=== PATIENT | female | born 1955 | race Caucasian/White ===

== ENCOUNTER 2016-07-11 13:39 | Inpatient (IN) ==
[2016-07-11] MEDS ORDERED: Ondansetron 4 MG/2 ML VIAL IVP PRN (18:15)
[2016-07-11] MEDS ORDERED: *HR* Morphine 2 MG/ML SYRINGE IVP PRN (18:15)
[2016-07-11] MEDS ORDERED: *HR* HYDROmorphone 2 MG/ML SYRINGE IVP PRN (19:21)
--- NOTE | 2016-07-11 19:25 | Orthopedic History & Physical ---
Date of Encounter: 07/11/16 Time of Encounter: 19:22 History of Present Illness HPI: Ms. Slaughter is a 60 year old female Status post fall over her oxygen landing on her right shoulder. Patient is right-hand dominant. Patient denies any head trauma. Patient complains of pain in the right arm. She was seen at [facility] transferred over for treatment of a comminuted displaced right proximal humerus fracture. Past medical history COPD, hypertension, thyroid disease Surgical history: Multiple eye surgeries, 3 back surgeries, knee surgery, cholecystectomy. Allergies Levaquin Patient lives at home alone on home oxygen. Physical exam Alert and oriented 3 normocephalic/atraumatic. Right upper extremity positive swelling positive ecchymosis decreased range of motion secondary to pain neurovascularly intact. X-rays right humerus show displaced comminuted oblique proximal third humerus fracture Although patient is high risk this fracture requires surgical management. The plan is open reduction internal fixation of the right humerus. We discussed risks benefits as well as recovery. Past Med Surg Social Fam HX - Past Medical History Medical history: arthritis, COPD, hypertension - Past Surgical History Surgical History: coronary bypass (CABG) - Social History Smoking Status: Former smoker Smokeless Tobacco Status: No Alcohol use: none Drug use: none Medications and Allergies Albuterol Sulfate [Ventolin Hfa] 2 puff IH Q4-6H PRN 07/11/16 [History] Amlodipine [Norvasc] 5 mg PO DAILY 07/11/16 [History] Fluticasone/Salmeterol [Advair 250-50 Diskus] 1 puff IH BID 07/11/16 [History] Levothyroxine Sodium [Synthroid] 137 mcg PO DAILY 07/11/16 [History] Morphine Sulfate [Morphine Sulfate ER] 60 mg PO Q12H 07/11/16 [History] Omeprazole [PriLOSEC] 20 mg PO BID 07/11/16 [History] Oxycodone HCl/Acetaminophen [Percocet 7.5-325 mg Tablet] 1 tab PO BID PRN [History] Simvastatin [Zocor] 20 mg PO HS 07/11/16 [History] Umeclidinium [place] [Incruse Ellipta] 1 puff IH DAILY 07/11/16 [History] Valsartan [Diovan] 80 mg PO DAILY 07/11/16 [History] Allergies levofloxacin [From Levaquin] Allergy (Verified 07/11/16 17:58) Itching All Systems Reviewed: A 10-system review of systems was performed and is negative for pertinent findings except as documented above in the HPI. Physical Exam - Constitutional Vitals: Temp Pulse Resp BP Pulse Ox 99.6 F 95 16 124/78 97 07/11/16 17:49 07/11/16 17:49 07/11/16 17:49 07/11/16 17:49 07/11/16 17:49 Results - Labs Labs: All other labs normal.
[2016-07-11] MEDS: Budesonide/Formoterol 160/4.5 MDI IH SCH (21:06)
[2016-07-11] MEDS: *HR* Morphine Sulfate SR (12 HR) 60 MG TABLET.ER PO SCH (21:06)
[2016-07-12] MEDS: *HR* OxyCODONE Immed Rel 5 MG TABLET PO PRN ×5 (01:05→23:13)
[2016-07-12] MEDS: Ringers Solution, Lactated 1,000 ML IVC SCH ×2 (01:10→22:22)
[2016-07-12 04:51] LABS: INR 1.3; Prothrombin Time 13.8 Seconds (9.4-12.1)
[2016-07-12 04:55] LABS: Basophils % 0.3 %; Eosinophils % 0.2 %; Hematocrit 30.9 % (35.3-44.9); Hemoglobin 9.7 g/dL (11.5-15.4); Immature Granulocytes % 0.6 % (0-4); Lymphocytes % 11.5 %; Mean Corpuscular HGB Conc 31.4 g/dL (31.6-35.5); Mean Corpuscular Hemoglobin 25.3 pg (28.0-33.3); Mean Corpuscular Volume 80.7 fL (83.0-100.0); Mean Platelet Volume 10.7 fL (9.4-12.4); Monocytes # 0.9 K/mcL (0.0-1.3); Monocytes % 10.3 %; Neutrophils # 6.9 K/mcL (1.6-8.9); Platelet Count 236 K/mcL (140-400); Red Blood Count 3.83 M/mcL (3.82-4.97); Red Cell Distribution Width 14.8 % (11.5-14.5); Segmented Neutrophils % 77.1 %
[2016-07-12 05:09] LABS: BUN/Creatinine Ratio 13 (6-26); Blood Urea Nitrogen 12 mg/dL (7-20); Calcium 8.8 mg/dL (8.6-10.8); Carbon Dioxide 25 mEq/L (19-29); Chloride 104 mEq/L (98-109); Glucose 118 mg/dL (70-99); Osmolality,Calculated 281 (280-300); Potassium 4.2 mEq/L (3.5-4.5); Sodium 135 mEq/L (136-145); eGFR For African Americans > 60 (> 60); eGFR For Non-African Americans > 60 (> 60)
--- NOTE | 2016-07-12 06:51 | Orthopedics Progress Note ---
Date of Encounter: 07/12/16 Time of Encounter: 06:51 Subjective Interval history: Patient seen this morning resting comfortably Right upper extremity neurovascular intact in splint Hematocrit 30 will transfuse 1 unit surgery planned for tomorrow open reduction internal fixation. Objective Vital signs: Vital Signs Temp Pulse Resp BP Pulse Ox 07/12/16 05:22 97.9 F 86 16 100/68 95 07/12/16 01:17 98.7 F 101 17 130/77 95 07/11/16 22:10 98.4 F 98 16 130/84 95 07/11/16 21:06 16 99 07/11/16 17:49 99.6 F 95 16 124/78 97 Intake and Output 07/11/16 07/11/16 07/12/16 15:59 23:59 07:59 Intake Total 0 / 0 230 / 230 Balance 0 / 0 230 / 230 Intake: Oral 0 / 0 230 / 230 Other: Weight 105 kg - Labs CBC & BMP: 07/12/16 04:21 07/12/16 04:21 Labs: Abnormal lab results Hgb 9.7 g/dL (11.5-15.4) L 07/12/16 04:21 Hct 30.9 % (35.3-44.9) L 07/12/16 04:21 MCV 80.7 fL (83.0-100.0) L 07/12/16 04:21 MCH 25.3 pg (28.0-33.3) L 07/12/16 04:21 MCHC 31.4 g/dL (31.6-35.5) L 07/12/16 04:21 RDW 14.8 % (11.5-14.5) H 07/12/16 04:21 PT 13.8 Seconds (9.4-12.1) H 07/12/16 04:21 Sodium 135 mEq/L (136-145) L 07/12/16 04:21 Glucose 118 mg/dL (70-99) H 07/12/16 04:21 Consult Discharge Plan - Plan Referrals: NO,PCP [Primary Care Provider] -
[2016-07-12] MEDS ORDERED: Furosemide 20 MG/2 ML VIAL IVP ONE ×2 (06:56→15:37)
[2016-07-12] MEDS ORDERED: 0.9 % Sodium Chloride 250 ML IVC PRN (06:56)
[2016-07-12] MEDS: amLODIPine 5 MG TABLET PO SCH ×2 (07:45→13:27)
[2016-07-12] MEDS: Valsartan 80 MG TABLET PO SCH ×2 (07:45→13:26)
[2016-07-12] MEDS: Budesonide/Formoterol 160/4.5 MDI IH SCH ×2 (08:48→22:34)
[2016-07-12 09:05] LABS: Hematocrit 29.5 % (35.3-44.9); Hemoglobin 9.2 g/dL (11.5-15.4)
[2016-07-12] MEDS: *HR* Morphine Sulfate SR (12 HR) 60 MG TABLET.ER PO SCH ×2 (09:12→20:13)
--- NOTE | 2016-07-12 11:24 | Discharge Summary ---
Date of Encounter: 07/14/16 Time of Encounter: 06:34 - Discharge Diagnosis (1) Fracture of proximal end of right humerus Priority: Primary Status: Acute Qualifiers: Encounter type: initial encounter Fracture type: closed Fracture morphology: other fracture Fracture alignment: displaced Qualified Code(s): S42.291A - Other displaced fracture of upper end of right humerus, initial encounter for closed fracture (2) COPD (chronic obstructive pulmonary disease) Priority: Secondary Status: Chronic Qualifiers: COPD type: unspecified COPD Qualified Code(s): J44.9 - Chronic obstructive pulmonary disease, unspecified (3) Hypertension Priority: Secondary Status: Chronic Qualifiers: Hypertension type: unspecified secondary hypertension Qualified Code(s): I15.9 - Secondary hypertension, unspecified; I15 - Secondary hypertension (4) Thyroid disease Priority: Secondary Status: Chronic (5) Obesity (BMI 35.0-39.9 without comorbidity) Priority: Secondary Status: Acute (6) Acute blood loss anemia Priority: Primary Status: Acute (7) PVC (premature ventricular contraction) Priority: Secondary Status: Chronic - Discharge Medications Prescriptions: Morphine Sulfate SR (12 HR) [MS Contin] 60 mg PO Q12H #10 tablet.er Oxycodone HCl/Acetaminophen [Percocet 7.5-325 mg Tablet] 1 tab PO BID PRN #14 tablet PRN Reason: Pain Home Medications: Albuterol Sulfate [Ventolin Hfa] 2 puff IH Q4-6H PRN 07/11/16 [History] Amlodipine [Norvasc] 5 mg PO DAILY 07/11/16 [History] Fluticasone/Salmeterol [Advair 250-50 Diskus] 1 puff IH BID 07/11/16 [History] Levothyroxine Sodium [Synthroid] 137 mcg PO DAILY 07/11/16 [History] Morphine Sulfate [Morphine Sulfate ER] 60 mg PO Q12H 07/11/16 [History] Omeprazole [PriLOSEC] 20 mg PO BID 07/11/16 [History] Simvastatin [Zocor] 20 mg PO HS 07/11/16 [History] Umeclidinium [place] [Incruse Ellipta] 1 puff IH DAILY 07/11/16 [History] Valsartan [Diovan] 80 mg PO DAILY 07/11/16 [History] Morphine Sulfate SR (12 HR) [MS Contin] 60 mg PO Q12H #10 tablet.er 07/12/16 [Rx ] Oxycodone HCl/Acetaminophen [Percocet 7.5-325 mg Tablet] 1 tab PO BID PRN #14 tablet 07/12/16 [Rx] Allergies/Adverse Reactions: Allergies levofloxacin [From Levaquin] Allergy (Verified 07/11/16 17:58) Itching Labs on day of discharge: Labs from last 24 hours 07/12/16 07/12/16 07/12/16 08:37 08:37 04:21 WBC RBC Hgb 9.2 L Hct 29.5 L MCV MCH MCHC RDW Plt Count MPV Immature Gran % Seg Neutrophils % Lymphocytes % Monocytes % Eosinophils % Basophils % Neutrophils # Lymphocytes # Monocytes # Eosinophils # Basophils # PT INR Sodium 135 L Potassium 4.2 Chloride 104 Carbon Dioxide 25 BUN 12 Creatinine 0.89 Est GFR ( Amer) > 60 Est GFR (Non-Af Amer) > 60 BUN/Creatinine Ratio 13 Glucose 118 H Calculated Osmolality 281 Calcium 8.8 Blood Type A POSITIVE Antibody Screen NEGATIVE Crossmatch See Detail 07/12/16 07/12/16 04:21 04:21 WBC 8.9 RBC 3.83 Hgb 9.7 L Hct 30.9 L MCV 80.7 L MCH 25.3 L MCHC 31.4 L RDW 14.8 H Plt Count 236 MPV 10.7 Immature Gran % 0.6 Seg Neutrophils % 77.1 Lymphocytes % 11.5 Monocytes % 10.3 Eosinophils % 0.2 Basophils % 0.3 Neutrophils # 6.9 Lymphocytes # 1.0 Monocytes # 0.9 Eosinophils # 0.0 Basophils # 0.0 PT 13.8 H INR 1.3 Sodium Potassium Chloride Carbon Dioxide BUN Creatinine Est GFR ( Amer) Est GFR (Non-Af Amer) BUN/Creatinine Ratio Glucose Calculated Osmolality Calcium Blood Type Antibody Screen Crossmatch - Impressions ITS Impressions Chest X-Ray 07/12/16 05:00 IMPRESSION: 1. Acute comminuted proximal right humeral fracture. D/ / Don Mccoy MD / Don Mccoy MD Interpreting Provider: Don Mccoy MD Date of admission: 07/12/16 08:33 Primary care physician: PCP NO Consults: 07/11/16 18:18 Consult to Physician [CONS] Routine Consulting Provider: Eliseo Salazar Reason for Consult: medical management/ pre op Call Completed: Mala 07/12/16 11:17 Consult to It Infrastructure Specialist [CONS] Routine Reason for SW Consult: d/c planning - Patient Status Disposition: Home, Self-Care Condition: Good Functional capacity at discharge: independent ambulation Overall status at discharge: patient is progressing back to baseline - Discharge Instructions Follow Up With: NO,PCP [Non-Partnered Physician] - - Hospital Course Hospital course: Ms. Slaughter is a 60 year old female The patient had an uneventful postoperative course. They received antibiotics and physical therapy and were discharged in stable condition. There will follow -up in the office in 2 weeks. - Time Spent with Patient Total time spent providing and/or coordinating discharge services:
--- NOTE | 2016-07-12 13:39 | Internal Medicine Consult Note ---
Addendum entered and electronically signed by Chris Campos DO 07/12/16 19:06 : After evaluation of her ECG, she appeared to have some ECG changes that were not present before. I feel that it would be prudent to have an evaluation by cardiology in light of these findings prior to her procedure. Cardiology has been consulted and per their recommendation, we have obtained a magnesium level. Original Note: <Chris Campos - Last Filed: 07/12/16 13:35> Date of Encounter: 07/12/16 Time of Encounter: 13:00 Internal Medicine - CN: HPI - Data of Consult Patient: new to practice Consult date: 07/12/16 Requesting Physician: Joaquín Sam MD - Consult Narrative Reason for consult: Medical management and pre-op assessment History of present illness: Ms. Slaughter is a 60 year old female with prior history of COPD (on 3 L home oxygen), hypothyroidism, hypertension, artificial left eye, and chronic back pain who presented to [facility] after suffering a mechanical fall at home. In this fall, she fell in her right shoulder and suffered a comminuted fracture in the proximal humerus. She denies any precipitating illness or symptomatic complaints prior to suffering her fall. Immediately upon falling she had 10/10 pain in severity in her left shoulder reports having bruised her chin, left knee , and left hand. She denies having been sick recently, denies chest pain, denies any greater shortness of breath than usual. She denies lightheadedness, denies dizziness, denies changes in vision. She denies prior history of heart failure or coronary artery disease. - Constitutional Constitutional: falls, no chills, no fatigue, no fever(s), no weakness - EENT Eyes: no blurry vision, no change in vision, no loss of vision - Cardiovascular Cardiovascular ROS IM: dyspnea (Normal for her), dyspnea on exertion (Normal for her), no chest pain, no diaphoresis, no edema, no lightheadedness, no orthopnea, no palpitations - Respiratory Respiratory: as per HPI, dyspnea (Normal for her), no cough, no hemoptysis, no wheezing, no change in phlegm color, no pain with cough - Gastrointestinal Gastrointestinal: no abdominal pain, no constipation, no diarrhea, no hematochezia, no nausea, no vomiting - Musculoskeletal Musculoskeletal ROS IM: back pain, no muscle weakness, no numbness, no tingling - Integumentary Integumentary IM: as per HPI (Ecchymoses) - Neurological Neurological ROS: no focal weakness, no headache(s), no numbness, no tingling, no weakness Past Med Surg Social Fam HX - Past Medical History Medical history: arthritis, COPD, hypertension - Past Surgical History Surgical History: coronary bypass (CABG) - Social History Smoking Status: Former smoker Smokeless Tobacco Status: No Alcohol use: none Drug use: none Internal Medicine - CN: Meds Albuterol Sulfate [Ventolin Hfa] 2 puff IH Q4-6H PRN 07/11/16 [History] Amlodipine [Norvasc] 5 mg PO DAILY 07/11/16 [History] Fluticasone/Salmeterol [Advair 250-50 Diskus] 1 puff IH BID 07/11/16 [History] Levothyroxine Sodium [Synthroid] 137 mcg PO DAILY 07/11/16 [History] Morphine Sulfate [Morphine Sulfate ER] 60 mg PO Q12H 07/11/16 [History] Omeprazole [PriLOSEC] 20 mg PO BID 07/11/16 [History] Simvastatin [Zocor] 20 mg PO HS 07/11/16 [History] Umeclidinium [place] [Incruse Ellipta] 1 puff IH DAILY 07/11/16 [History] Valsartan [Diovan] 80 mg PO DAILY 07/11/16 [History] Morphine Sulfate SR (12 HR) [MS Contin] 60 mg PO Q12H #10 tablet.er 07/12/16 [Rx ] Oxycodone HCl/Acetaminophen [Percocet 7.5-325 mg Tablet] 1 tab PO BID PRN #14 tablet 07/12/16 [Rx] Allergies levofloxacin [From Levaquin] Allergy (Verified 07/11/16 17:58) Itching Internal Medicine - CN: Exam - Constitutional Vitals: Temp Pulse Resp BP Pulse Ox 98.8 F 103 16 124/70 96 07/12/16 13:01 07/12/16 13:01 07/12/16 13:01 07/12/16 13:01 07/12/16 13:01 General appearance IM: Present: cooperative, A&O X 3, pleasant, no acute distress, obese, answers questions appropriately - Head Head exam: Present: atraumatic, normocephalic Additional comments: Ecchymosis on left side of mental/mandibular area - Expanded Head Exam Head exam expanded IM: Absent: abrasion, Berg's sign, laceration, raccoon eyes - Eye Eye exam: Present: conjuntiva pink. Absent: conjunctival injection, sclera anicteric Additional comments: Left eye prosthesis in place, right pupil round and reactive to light - ENT ENT exam: Present: mucous membranes moist, normal oropharynx - Neck Neck exam general surgery: Present: supple, trachea midline - Respiratory Respiratory exam: Present: CTAB. Absent: accessory muscle use, chest wall tenderness, rales, respiratory distress, rhonchi, stridor, wheezes, tachypnea - Cardiovascular Cardiovascular exam IM: Present: RRR (Occasional dropped beats), systolic murmur (Grade 2/6). Absent: bradycardia, diastolic murmur, gallop, rubs - Expanded Cardiovascular Exam Intensity: 2/6 - GI/Abdominal GI/Abdominal exam IM: Present: normal bowel sounds - Extremities Exam Extremities exam IM: Present: normal inspection, warm, radial pulses palpable and symetrical. Absent: calf tenderness, cyanotic, pedal edema, tenderness - Neurological Exam Neurological exam: Present: alert, oriented X3, no focal deficits. Absent: motor sensory deficit, facial droop, speech deficit - Skin Skin exam IM: Present: dry, intact, warm. Absent: cyanosis Internal Medicine - CN: Reslt - Labs CBC & Chem 7: 07/12/16 08:37 07/12/16 04:21 Labs: Short CBC 07/12/16 07/12/16 Range/Units 04:21 08:37 WBC 8.9 (4.3-11.1) K/mcL Hgb 9.7 L 9.2 L (11.5-15.4) g/dL Hct 30.9 L 29.5 L (35.3-44.9) % Plt Count 236 (140-400) K/mcL Neutrophils # 6.9 (1.6-8.9) K/mcL BMP 07/12/16 04:21 Sodium 135 L Potassium 4.2 Chloride 104 Carbon Dioxide 25 BUN 12 Creatinine 0.89 Glucose 118 H Calcium 8.8 - ABG Interpretation ABG results: PT/INR, D-dimer PT 13.8 Seconds (9.4-12.1) H 07/12/16 04:21 - Impressions Impressions Chest X-Ray 07/12/16 05:00 IMPRESSION: 1. Acute comminuted proximal right humeral fracture. D/ / Don Mccoy MD / Don Mccoy MD Interpreting Provider: Don Mccoy MD - Assessment and Plan (1) Pre-op evaluation Current Visit: Yes Status: Acute Assessment and plan: Medicine consulted to assist in optimization of patient medical management and for preoperative evaluation. Patient appears stable. COPD is not in exacerbation, patient is on her home oxygen, no wheezes auscultated on exam, patient has no complaints of increased shortness of breath, dyspnea, fever/ chills. Patient had echocardiogram performed 05/31/16 that was completely normal. EKG shows not concerning T-wave inversions, patient occasionally has dropped beats. Her thyroid medication appears to working reasonably, and her blood pressure is currently controlled with home medications. We will obtain additional EKG for concern of patient skipped beats and for comparison Continue current medications for COPD Recommend incentive spirometry post procedure Recommend nebulized breathing treatments postprocedure Continue home oxygen Patient undergoing intermediate risk procedure and will be at increased risk due to her underlying lung disease. This is stable at this time. Patient has no history of heart failure or valvular abnormalities, with recent corroboration with echocardiogram. (2) Fracture of proximal end of right humerus Current Visit: Yes Status: Acute Assessment and plan: Patient brought proximal right humerus in a mechanical fall at home. Orthopedic surgery primary Plan for fixation of right humerus tomorrow Qualifiers: Encounter type: initial encounter Fracture type: closed Fracture morphology: other fracture Fracture alignment: displaced Qualified Code(s): S42.291A - Other displaced fracture of upper end of right humerus, initial encounter for closed fracture (3) COPD (chronic obstructive pulmonary disease) Current Visit: Yes Status: Chronic Assessment and plan: Patient reports having COPD, likely from smoking (she reports quitting 2 years ago). She states that she is on 3 L home oxygen all the time. No wheezes auscultated on exam, patient does not have complaints of increased shortness of breath, and there are no reports of recent illness. Continue current medications Plan as above Qualifiers: COPD type: unspecified COPD Qualified Code(s): J44.9 - Chronic obstructive pulmonary disease, unspecified (4) Hypertension Current Visit: Yes Status: Chronic Assessment and plan: Continue home antihypertensive medications Qualifiers: Hypertension type: unspecified secondary hypertension Qualified Code(s): I15.9 - Secondary hypertension, unspecified; I15 - Secondary hypertension (5) Obesity (BMI 35.0-39.9 without comorbidity) Current Visit: Yes Status: Acute (6) Thyroid disease Current Visit: Yes Status: Chronic Assessment and plan: Continue home levothyroxine (7) DVT prophylaxis Current Visit: Yes Status: Acute Assessment and plan: Recommend starting subcutaneous heparin for DVT prophylaxis Consult Discharge Plan - Plan Referrals: NO,PCP [Primary Care Provider] - Prescriptions: Morphine Sulfate SR (12 HR) [MS Contin] 60 mg PO Q12H #10 tablet.er Oxycodone HCl/Acetaminophen [Percocet 7.5-325 mg Tablet] 1 tab PO BID PRN #14 tablet PRN Reason: Pain <Eliseo Salazar - Last Filed: 07/12/16 19:25> Date of Encounter: 07/12/16 - Attending Attestation I have seen and examined this patient independently. I have discussed the case with theresident, Dr. Chris Campos. I agree with the data gathering in the HPI , physical examination findings, assessment and plan as documented by Dr. Campos. Presurgical evaluation requested, no chest pain and presrved EF, finding of PVCs in EKG, would recommend telemetry monitoring and an evaluation by cardiology. Magnesium levels requested. Thank you for the consult. Internal Medicine - CN: HPI - Data of Consult Requesting Physician: Joaquín Sam MD - Consult Narrative History of present illness: Ms. Slaughter is a 60 year old female Internal Medicine - CN: Exam - Constitutional Vitals: Temp Pulse Resp BP Pulse Ox 99.1 F 93 17 124/70 99 07/12/16 15:31 07/12/16 15:31 07/12/16 15:31 07/12/16 13:01 07/12/16 15:31 Internal Medicine - CN: Reslt - Labs CBC & Chem 7: 07/12/16 08:37 12/29/16 04:21 Labs: Short CBC 07/12/16 07/12/16 Range/Units 04:21 08:37 WBC 8.9 (4.3-11.1) K/mcL Hgb 9.7 L 9.2 L (11.5-15.4) g/dL Hct 30.9 L 29.5 L (35.3-44.9) % Plt Count 236 (140-400) K/mcL Neutrophils # 6.9 (1.6-8.9) K/mcL BMP 07/12/16 04:21 Sodium 135 L Potassium 4.2 Chloride 104 Carbon Dioxide 25 BUN 12 Creatinine 0.89 Glucose 118 H Calcium 8.8 - ABG Interpretation ABG results: PT/INR, D-dimer PT 13.8 Seconds (9.4-12.1) H 07/12/16 04:21 - Impressions Impressions Chest X-Ray 07/12/16 05:00
--- NOTE | 2016-07-12 14:48 | Electrocardiograph Report ---
[facility] Test Date: 2016-07-12 Pat Name: Naomy Slaughter Department: 114 Room: [facility] Gender: F [employer]: [facility] : 1955 Requested By: Joaquín Sam Order Number: [id number] Reading MD: Mendez Little Measurements Intervals [place] Rate: 78 P: 59 ND: 151 QRS: 76 QRSD: 94 T: 34 QT: 369 QTc: 402 Interpretive Statements SINUS RHYTHM MODERATE T-WAVE ABNORMALITY, CONSIDER ANTERIOR ISCHEMIA Electronically Signed On 07-12-16 14:47:38 EST by Mendez Little
[2016-07-12 19:57] LABS: Hematocrit 32.9 % (35.3-44.9); Hemoglobin 10.6 g/dL (11.5-15.4)
--- NOTE | 2016-07-12 22:40 | Anesthesia Evaluation PreOp ---
Date of Encounter: 07/12/16 Time of Encounter: 22:38 - Past History Planned Operation: R humerus ORIF Cardiac History: HTN Pulmonary History: Former smoker, COPD (oxygen dependent (3L oxygen all the time )) ELIGIBILITY COUNSELOR History: Denies Any Significant HX Other Medical History: Thyroid, Other (L eye is implant) Anesthesia History: No Prior Anesthetic Complications, Past Anesthesia ( cholecystectomy, knee surgery, back surgery (multiple), multiple eye surgeries) Alcohol Use: none Drug use: none Medications and Allergies Albuterol Sulfate [Ventolin Hfa] 2 puff IH Q4-6H PRN 07/11/16 [History] Amlodipine [Norvasc] 5 mg PO DAILY 07/11/16 [History] Fluticasone/Salmeterol [Advair 250-50 Diskus] 1 puff IH BID 07/11/16 [History] Levothyroxine Sodium [Synthroid] 137 mcg PO DAILY 07/11/16 [History] Morphine Sulfate [Morphine Sulfate ER] 60 mg PO Q12H 07/11/16 [History] Omeprazole [PriLOSEC] 20 mg PO BID 07/11/16 [History] Simvastatin [Zocor] 20 mg PO HS 07/11/16 [History] Umeclidinium [place] [Incruse Ellipta] 1 puff IH DAILY 07/11/16 [History] Valsartan [Diovan] 80 mg PO DAILY 07/11/16 [History] Morphine Sulfate SR (12 HR) [MS Contin] 60 mg PO Q12H #10 tablet.er 07/12/16 [Rx ] Oxycodone HCl/Acetaminophen [Percocet 7.5-325 mg Tablet] 1 tab PO BID PRN #14 tablet 07/12/16 [Rx] Allergies levofloxacin [From Levaquin] Allergy (Verified 07/11/16 17:58) Itching - Meds/Allergy Pre-op Review Medications Reviewed: Yes Allergies Reviewed: Yes Beta Blockers on Current Med List: No Anesthesia Results - Labs 07/12/16 19:45 07/12/16 04:21 - Imaging EKG: report reviewed, image reviewed (SR; mod T-wave abnormality (consider anterior ischemia)) Anesthesia Exam Last Vital Signs Temp 98.5 F 07/12/16 20:00 Pulse 108 07/12/16 20:00 Resp 18 07/12/16 20:00 BP 105/70 07/12/16 20:00 Pulse Ox 98 07/12/16 20:00 Weight: 105 kg - HEENT Pupil (Motor): Pupils equal, EOMI Mallampati: III Teeth: Edentulous Denture Type: Upper: Complete, Lower: Complete Oral Opening: Greater than 3 - ELIGIBILITY COUNSELOR LOC: Oriented - Cardiac Rhythm: Regular Murmur: Systolic (low grade VENKAT) - Pulmonary Breath Sounds: bilateral Clear Respiratory Effort: Symmetrical Anesthesia Assess/Plan ASA Score: 3 Modified [place] Scale for Level of Consciousness: Cooperative, oriented, and tranquil Anesthetic Plan: General, Precautions ( Awaiting cardiology clearance per Internal Medicine note Although patient is asymptomatic -- concern is for new EKG changes) Monitoring Plan: Standard Monitors Recovery Plan: PACU
[2016-07-13] MEDS: *HR* OxyCODONE Immed Rel 5 MG TABLET PO PRN ×3 (03:25→15:10)
--- NOTE | 2016-07-13 06:36 | Orthopedics Progress Note ---
Date of Encounter: 07/13/16 Time of Encounter: 06:36 - Assessment and Plan (1) Fracture of proximal end of right humerus Current Visit: Yes Status: Acute Qualifiers: Encounter type: initial encounter Fracture type: closed Fracture morphology: other fracture Fracture alignment: displaced Qualified Code(s): S42.291A - Other displaced fracture of upper end of right humerus, initial encounter for closed fracture (2) COPD (chronic obstructive pulmonary disease) Current Visit: Yes Status: Chronic Qualifiers: COPD type: unspecified COPD Qualified Code(s): J44.9 - Chronic obstructive pulmonary disease, unspecified (3) Hypertension Current Visit: Yes Status: Chronic Qualifiers: Hypertension type: unspecified secondary hypertension Qualified Code(s): I15.9 - Secondary hypertension, unspecified; I15 - Secondary hypertension (4) Thyroid disease Current Visit: Yes Status: Chronic (5) Obesity (BMI 35.0-39.9 without comorbidity) Current Visit: Yes Status: Acute Subjective Interval history: Patient seen this morning resting comfortably Right upper extremity neurovascular intact in splint Planned surgery today Objective Vital signs: Vital Signs Temp Pulse Resp BP Pulse Ox 07/13/16 04:00 98.4 F 84 17 116/69 94 L 07/13/16 00:00 98.1 F 96 18 110/68 98 07/12/16 22:34 17 98 07/12/16 20:00 98.5 F 108 18 105/70 98 07/12/16 15:31 99.1 F 93 17 99 07/12/16 13:01 98.8 F 103 16 124/70 96 07/12/16 12:46 98.5 F 92 17 119/73 98 07/12/16 12:30 98.0 F 86 14 123/72 98 07/12/16 10:01 95 139/88 07/12/16 09:08 92 104/68 07/12/16 08:49 18 100 07/12/16 07:11 98.2 F 87 16 82/54 95 Intake and Output 07/12/16 07/12/16 07/13/16 15:59 23:59 07:59 Intake Total 1590 / 1590 560 / 560 0 / 0 Output Total 300 / 300 350 / 350 Balance 1590 / 1590 260 / 260 -350 / -350 Intake: IV Fluids 1050 / 1050 0.9 % Sodium Chloride 250 50 / 50 ML @ 25 mls/hr IVC .Q10H PRN Rx#:[id number] Lactated Ringers 1,000 ML 1000 / 1000 @ 75 mls/hr IVC .[id number] MYRNA Rx#:[id number] Oral 240 / 240 560 / 560 0 / 0 Blood Product 300 / 300 Rbcs Leuko Poor As-1 300 / 300 Unit [id number] Output: Urine 300 / 300 350 / 350 Other: Meal Breakfast Dinner Percent of Meal Consumed 100% 100% # Voids 1 - Labs CBC & BMP: 07/12/16 19:45 07/12/16 04:21 Labs: Abnormal lab results Hgb 10.6 g/dL (11.5-15.4) L 07/12/16 19:45 Hct 32.9 % (35.3-44.9) L 07/12/16 19:45 MCV 80.7 fL (83.0-100.0) L 07/12/16 04:21 MCH 25.3 pg (28.0-33.3) L 07/12/16 04:21 MCHC 31.4 g/dL (31.6-35.5) L 07/12/16 04:21 RDW 14.8 % (11.5-14.5) H 07/12/16 04:21 PT 13.8 Seconds (9.4-12.1) H 07/12/16 04:21 Sodium 135 mEq/L (136-145) L 07/12/16 04:21 Glucose 118 mg/dL (70-99) H 07/12/16 04:21 - VTE Documentation of Mechanical Device: Intermittent pneumatic compression device Consult Discharge Plan - Plan Referrals: NO,PCP [Primary Care Provider] - Prescriptions: Morphine Sulfate SR (12 HR) [MS Contin] 60 mg PO Q12H #10 tablet.er Oxycodone HCl/Acetaminophen [Percocet 7.5-325 mg Tablet] 1 tab PO BID PRN #14 tablet PRN Reason: Pain
[2016-07-13] MEDS: Budesonide/Formoterol 160/4.5 MDI IH SCH ×2 (07:52→23:57)
[2016-07-13] MEDS: Valsartan 80 MG TABLET PO SCH (08:34)
[2016-07-13] MEDS: amLODIPine 5 MG TABLET PO SCH (08:34)
[2016-07-13] MEDS: *HR* Morphine Sulfate SR (12 HR) 60 MG TABLET.ER PO SCH (08:35)
--- NOTE | 2016-07-13 09:33 | Cardiology Consult Note ---
Date of Encounter: 07/13/16 Time of Encounter: 09:31 Assessment and Plan (1) Pre-operative cardiovascular examination Current Visit: Yes Status: Acute Denies chest pain. SOB stable. EKG unchanged from previous. TTE 05/31/16: LVEF 65%, normal diastolic function, normal RV, no significant valvular dysfunction. No further cardiac testing indicated. Intermediate risk for intermediate risk procedure. Call with questions. (2) PVC (premature ventricular contraction) Current Visit: Yes Status: Acute Telemetry review shows 1823 isolated PVC over 24 hour period. Pt describes minimal symptoms. Recent outpatient cardiology work-up. TTE shows normal LVEF, no significant valvular disease. Pt drinks Tea and pepsi all day. Instructed to decrease caffeine intake. Consider beta-barbara in the future, out-pt setting. Do not recommend starting prior to surgery. F/u with cardiology in one month. Discussion w patient/family: The assessment and plan as outlined above was discussed with the patient and/or family members who expressed understanding and agreement. All questions were answered. Thank you for involving us in the care of your patient. Please call with any questions. History of Present Illness Consult date: 07/13/16 Requesting physician: Chris Campos Consult reason: PVC, pre-operative cardiovascular assessment Chief complaint: fall History of present illness: Ms. Slaughter is a 60 year old female who presented after tripping over her oxygen cord and falling breaking her right humerus. She is planning to have ORIF of the right humerus with Dr. Sam. Cardiology consulted for PVCs and pre- operative cardiovascular clearance. Past medical history includes essential hypertension, COPD on home O2, hypothyroidism. Denies history of CAD. Recent work-up for PVC and innocent murmur one month ago in out pt setting. She denies chest pain. Admits to SOB that is stable, on home O2 for COPD. Occasional sweating when she becomes SOB. Occasional palpitations. Denies dizziness or syncope. Denies orthopnea, PND, or edema. No new symptoms. 24 hr telemetry review shows NSR. Avg HR 77 bpm, 1823 single isolated PVC seen, no runs, no couplets. No bradycardia or pauses. TTE 05/31/16: LVEF 65%, normal diastolic function, normal RV, no significant valvular dysfunction. EKG 07/12/16- SR with non-specifiv t wave changes that are unchanged from previous EKG. 2 PVC. Past Med Surg Social Fam HX - Past Medical History Medical history: arthritis, COPD, hypertension - Social History Smoking Status: Former smoker Smokeless Tobacco Status: No Alcohol use: none Drug use: none Medications and Allergies Albuterol Sulfate [Ventolin Hfa] 2 puff IH Q4-6H PRN 07/11/16 [History] Amlodipine [Norvasc] 5 mg PO DAILY 07/11/16 [History] Fluticasone/Salmeterol [Advair 250-50 Diskus] 1 puff IH BID 07/11/16 [History] Levothyroxine Sodium [Synthroid] 137 mcg PO DAILY 07/11/16 [History] Morphine Sulfate [Morphine Sulfate ER] 60 mg PO Q12H 07/11/16 [History] Omeprazole [PriLOSEC] 20 mg PO BID 07/11/16 [History] Simvastatin [Zocor] 20 mg PO HS 07/11/16 [History] Umeclidinium [place] [Incruse Ellipta] 1 puff IH DAILY 07/11/16 [History] Valsartan [Diovan] 80 mg PO DAILY 07/11/16 [History] Morphine Sulfate SR (12 HR) [MS Contin] 60 mg PO Q12H #10 tablet.er 07/12/16 [Rx ] Oxycodone HCl/Acetaminophen [Percocet 7.5-325 mg Tablet] 1 tab PO BID PRN #14 tablet 07/12/16 [Rx] Allergies levofloxacin [From Levaquin] Allergy (Verified 07/11/16 17:58) Itching All Systems Review: A 10-system review of systems was performed and is negative for pertinent findings except as documented above in the HPI. Physical Examination Vital Signs, Last 4 Hours Temp Pulse Resp BP Pulse Ox 07/13/16 06:53 98.2 F 63 16 94/60 94 L General: Conversant, No Apparent Distress HEENT: Atraumatic, Normocephaly, Mucus Membranes Moist Neck: No JVD, Normal carotid pulses Cardiac: Reg Rate and Rhythm, Normal S1 and S2, No Murmur Lungs: Normal Breath Sounds, No Wheeze, Rales, Rhonchi Neuro: Alert and responsive, No focal deficits noted Abdomen: Soft, Non-Tender Skin: No rashes noted on visualized skin Musculoskeletal: No Chest Wall Tenderness Extremities: No Clubbing, No Cyanosis, No Edema, Normal Pulses, Other (sling and ice pack on right shoulder. Ecchymosis on chin. ) Results 07/12/16 19:45 07/12/16 04:21 Lab Results 07/12/16 07/13/16 19:45 05:55 Hgb 10.6 L Hct 32.9 L Magnesium 1.6 Chest X-Ray 07/12/16 05:00 IMPRESSION: 1. Acute comminuted proximal right humeral fracture. D/ / Don Mccoy MD / Don Mccoy MD Interpreting Provider: Don Mccoy MD - Imaging and Cardiology Echo: report reviewed (TTE 05/31/16: LVEF 65%, normal diastolic function, normal RV, no significant valvular dysfunction.) - EKG Interpretation EKG results cardiology: personally reviewed (SR with PVC. Non-specific t wave changes.) Consult Discharge Plan - Plan Referrals: NO,PCP [Non-Partnered Physician] - Prescriptions: Morphine Sulfate SR (12 HR) [MS Contin] 60 mg PO Q12H #10 tablet.er Oxycodone HCl/Acetaminophen [Percocet 7.5-325 mg Tablet] 1 tab PO BID PRN #14 tablet PRN Reason: Pain
[2016-07-13] MEDS ORDERED: ADVAIR 250/50 IH SCH (10:00)
--- NOTE | 2016-07-13 11:28 | Electrocardiograph Report ---
[facility] Test Date: 2016-07-12 Pat Name: Naomy Slaughter Department: 114 Room: [facility] [place] Gender: F [employer]: DENIS : 1955 Requested By: Chris Campos Order Number: [id number] Reading MD: Mendez Little Measurements Intervals [place] Rate: 85 P: 53 ME: 145 QRS: 82 QRSD: 93 T: 34 QT: 356 QTc: 398 Interpretive Statements SINUS RHYTHM WITH FREQUENT VENTRICULAR PREMATURE COMPLEXES ABNORMAL RHYTHM ECG Electronically Signed On 07-13-16 11:27:09 EST by Mendez Little
[2016-07-13] MEDS ORDERED: *HR* FentaNYL (PF) 100 MCG/2 ML VIAL ONE (15:54)
[2016-07-13] MEDS ORDERED: *HR* Midazolam HCl 2 MG/2 ML VIAL ONE (15:55)
[2016-07-13] MEDS ORDERED: *HR* Propofol 200 MG/20 ML VIAL IVP ONE (15:55)
[2016-07-13] MEDS ORDERED: *HR* Succinylcholine 200 MG/10 ML VIAL IVP ONE (15:57)
[2016-07-13] MEDS ORDERED: Lidocaine -MPF 2% 2 ML VIAL ONE (15:57)
[2016-07-13] MEDS ORDERED: Lidocaine -MPF 4% 5 ML AMPUL ONE (16:01)
--- NOTE | 2016-07-13 16:18 | Internal Med Progress Note ---
Date of Encounter: 07/13/16 Time of Encounter: 03:30 - Assessment and plan (1) Fracture of proximal end of right humerus Current Visit: Yes Status: Acute Assessment and plan: Agree to proceed with surgery Qualifiers: Encounter type: initial encounter Fracture type: closed Fracture morphology: other fracture Fracture alignment: displaced Qualified Code(s): S42.291A - Other displaced fracture of upper end of right humerus, initial encounter for closed fracture (2) PVC (premature ventricular contraction) Current Visit: Yes Status: Acute Assessment and plan: Continue current med , Appreciate cardiology input (3) COPD (chronic obstructive pulmonary disease) Current Visit: Yes Status: Chronic Assessment and plan: Add Duonep q 4 H Qualifiers: COPD type: unspecified COPD Qualified Code(s): J44.9 - Chronic obstructive pulmonary disease, unspecified (4) Hypertension Current Visit: Yes Status: Chronic Assessment and plan: close monitoring adjust med PRN, pain control Qualifiers: Hypertension type: unspecified secondary hypertension Qualified Code(s): I15.9 - Secondary hypertension, unspecified; I15 - Secondary hypertension - Subjective Interval history: Patient denies any Cp or sob. need to have her inhaler before surgery - Constitutional Vitals: Temp Pulse Resp BP Pulse Ox 98.2 F 87 16 110/64 100 07/13/16 15:16 07/13/16 15:16 07/13/16 15:16 07/13/16 15:05 07/13/16 15:16 General appearance: Present: cooperative, A&O X 3, pleasant, no acute distress, obese, answers questions appropriately - Head Head exam: Present: atraumatic, normocephalic - Neck Neck exam general surgery: Present: supple, trachea midline. Absent: lymphadenopathy - Respiratory Respiratory exam: Present: decreased breath sounds, prolonged expiratory phase. Absent: accessory muscle use, rales, rhonchi, wheezes - Cardiovascular Cardiovascular exam: Present: RRR, +S1, +S2. Absent: diastolic murmur, gallop, rubs, systolic murmur - GI/Abdominal GI/Abdominal exam: Present: normal bowel sounds, soft, no peritoneal signs. Absent: distended, tenderness - Neurological Exam Neurological exam: Present: CN II-XII intact, oriented X3, no focal deficits. Absent: pronater drift, facial droop, speech deficit - Skin Skin exam: Present: dry, intact Internal Medicine: Result - Labs CBC & Chem 7: 07/12/16 19:45 07/12/16 04:21 Labs: Short CBC 07/12/16 Range/Units 19:45 Hgb 10.6 L (11.5-15.4) g/dL Hct 32.9 L (35.3-44.9) % - ABG Interpretation ABG results: PT/INR, D-dimer PT 13.8 Seconds (9.4-12.1) H 07/12/16 04:21 - VTE Documentation of Mechanical Device: Intermittent pneumatic compression device Consult Discharge Plan - Plan Referrals: NO,PCP [Non-Partnered Physician] - Prescriptions: Morphine Sulfate SR (12 HR) [MS Contin] 60 mg PO Q12H #10 tablet.er Oxycodone HCl/Acetaminophen [Percocet 7.5-325 mg Tablet] 1 tab PO BID PRN #14 tablet PRN Reason: Pain
[2016-07-13] MEDS ORDERED: Acetaminophen IV 1,000 MG/100 ML INFUS..BTL ONE (17:06)
[2016-07-13] MEDS ORDERED: Bupivacaine/Clonidine Syringe 1 EACH SYRINGE ONE (17:08)
[2016-07-13] MEDS ORDERED: Tetracaine/PF 20 MG/2 ML AMPUL SPINA ONE (17:19)
[2016-07-13] MEDS: Ipratropium/Albuterol Neb 3 ML IH SCH ×3 (17:42→23:57)
--- NOTE | 2016-07-13 17:47 | Anesthesia Procedures ---
Date of Encounter: 07/13/16 Time of Encounter: 17:30 Procedures: Anesthesia - Nerve Block Procedure Date: 07/13/16 Time: 17:30 Allergies/Adv Reactions: levaquin Pre-op Diagnosis: right humerus fracture Surgical Procedure: orif right humerus Checklist: Correct Patient Identifier, Correct procedure, History checked Correct side: Right Blood Thinner: No Monitor Applied: EKG, BP, Pulse Oximetry Supplemental Oxygen via Nasal Cannula (L/min): 3 Sedation: Versed (mg): 2 Sedation: Fentanyl (mcg): 100 Indication: Post Op Analgesia Pre-op Neuro Deficits: No Block Type: Supraclavicular Catheter placed: No Sterile Technique: Yes Ultrasound used: Yes Anatomy identified: Yes Visual spread of Local: Yes Neuro Stimulation: No Blood on Needle Aspiration: No Smooth Injection of Local: Yes Pain with Injection of Local: No Prep: Chlorhexadine Needle: 22 x 50 mm Stimuplex Local: 0.25% Bupivicaine w/Clonidine 20 mcg/cc, Tetracaine Volume (cc): 40 Number of Attempts: 1 Complications: None/effective block Vitals: 3 Vital Signs Time 1730 1735 BP 108/67 102/69 Pulse 100 99 Resp 16 16 O2 Sat 98 98
[2016-07-13] MEDS ORDERED: Dexamethasone 4 MG/ML VIAL ONE (18:25)
[2016-07-13] MEDS ORDERED: Ondansetron 4 MG/2 ML VIAL ONE (18:25)
[2016-07-13] MEDS ORDERED: EPHEDrine 50 MG/ML VIAL ONE (18:42)
--- NOTE | 2016-07-13 19:22 | Orthopedic Operative Note ---
Date of procedure: 07/13/16 Pre-op diagnosis: Displaced comminuted right proximal third humerus fracture Post-op diagnosis: same Procedure: Procedure: Right open reduction internal fixation proximal humerus Estimated blood loss: 250 cc Hardware: 8 hole Synthes proximal humeral locking plate, 1 3.5 cortical screws , 11 3.5 Locking screws, 4 super cables Procedural Notes: Displaced comminuted proximal third humeral fracture Operative procedure: The patient was brought to the operating room and placed on the operating room table. After general anesthesia was administered the operative arm was prepped and draped in the sterile surgical fashion The patient received IV antibiotics prior to skin incision. A standard extended deltopectoral approach was made to the humerus, the incision is made to the skin and subcutaneous tissue. Hemostasis was obtained with Bovie cautery. Using careful blunt dissection the deltopectoral interval was developed, exposing the fracture site. Patient had 5 large fragments. The 2 distal fragments were reduced and held with placed bone-holding forceps and fixed with 2 super cables. This construct was then secured to the middle butterfly fragment. This was then secured to the proximal fragment both of these were secured with the one super cable each. Using fluoroscopic assistance a Synthes 8 hole proximal humeral locking plate was approximated to the anterior lateral surface. It was fixed distally in compression with one 3.5 cortical screw. It was fixed proximally with 3.5 locking screws. Fixation was completed distally with 7 3.5 locking screws. Position of the hardware as well as fracture reduction found to be acceptable on fluoroscopic exam evaluation. The wound was irrigated the deltopectoral closed with a running #1 PDS suture case tissues irrigated and closed deep with 0 PDS suture superficially with 0 PDS suture was closed with Dermabond and skin austyn patient was sterile dressing and posterior splint. The patient was extubated, and then transferred to the recovery room in stable condition. Anesthesia: GETA Surgeon: Joaquín Sam Condition: stable Disposition: PACU
--- NOTE | 2016-07-13 20:27 | Anesthesia Evaluation Post Op ---
Date of Encounter: 07/13/16 Time of Encounter: 20:26 - Vital Signs Vital Signs: Last Vital Signs Temp 97.2 F L 07/13/16 20:16 Pulse 99 07/13/16 20:16 Resp 20 07/13/16 20:16 BP 95/73 07/13/16 20:16 Pulse Ox 92 L 07/13/16 20:16 - Lungs Lungs: Clear Ascult./Percussion - Airway Airway: Non-obstructed - Cardiovascular Regular Rate - Mental Status Mental Status: Alert & Oriented, Answers Appropriately - Pain Pain Scale: 2 - Nausea Vomiting Nausea Vomiting: Not Present - Hydration Hydration: Ice chips - Discharge PostOp Status: Transfer Patient to floor
[2016-07-13] MEDS ORDERED: Sennosides 8.6 MG TABLET PO PRN (20:40)
[2016-07-13] MEDS ORDERED: Naloxone 0.4 MG/ML INJ IVP PRN (20:40)
[2016-07-13] MEDS ORDERED: Ringers Solution, Lactated 1,000 ML IVC SCH (20:40)
[2016-07-13] MEDS ORDERED: 0.9 % Sodium Chloride 250 ML IVC PRN (20:40)
[2016-07-13] MEDS ORDERED: *HR* HYDROmorphone 2 MG/ML SYRINGE IVP PRN (20:40)
[2016-07-13] MEDS ORDERED: MOM Conc 10 ML UD.LIQ PO PRN (20:40)
[2016-07-13] MEDS ORDERED: Ondansetron 4 MG/2 ML VIAL IVP PRN (20:40)
[2016-07-13] MEDS ORDERED: Temazepam 15 MG CAPSULE PO PRN (20:40)
[2016-07-13] MEDS ORDERED: Magnesium Oxide 400 MG TABLET PO SCH (21:00)
[2016-07-13 21:19] LABS: Hematocrit 31.4 % (35.3-44.9); Hemoglobin 9.7 g/dL (11.5-15.4)
[2016-07-13] MEDS: Magnesium Oxide 400 MG TABLET PO SCH (21:32)
[2016-07-13] MEDS: ceFAZolin 2,000 MG in D5% in Water 100 ML IVPB SCH (22:46)
[2016-07-14] MEDS: Ipratropium/Albuterol Neb 3 ML IH SCH ×4 (04:23→16:55)
--- NOTE | 2016-07-14 06:36 | Orthopedics Progress Note ---
Date of Encounter: 07/14/16 Time of Encounter: 06:35 - Assessment and Plan (1) Fracture of proximal end of right humerus Current Visit: Yes Status: Acute Qualifiers: Encounter type: initial encounter Fracture type: closed Fracture morphology: other fracture Fracture alignment: displaced Qualified Code(s): S42.291A - Other displaced fracture of upper end of right humerus, initial encounter for closed fracture (2) COPD (chronic obstructive pulmonary disease) Current Visit: Yes Status: Chronic Qualifiers: COPD type: unspecified COPD Qualified Code(s): J44.9 - Chronic obstructive pulmonary disease, unspecified (3) Hypertension Current Visit: Yes Status: Chronic Qualifiers: Hypertension type: unspecified secondary hypertension Qualified Code(s): I15.9 - Secondary hypertension, unspecified; I15 - Secondary hypertension (4) Thyroid disease Current Visit: Yes Status: Chronic (5) Obesity (BMI 35.0-39.9 without comorbidity) Current Visit: Yes Status: Acute (6) Acute blood loss anemia Current Visit: Yes Status: Acute (7) PVC (premature ventricular contraction) Current Visit: Yes Status: Chronic Subjective Interval history: Patient was seen this morning doing well without complaints. Afebrile vital signs stable. Operative extremity: Neurovascularly still under the effects of the nerve block. Dressing clean dry and intact Calves nontender Assessment and plan: Continue with postoperative care Discharge today Objective Vital signs: Vital Signs Temp Pulse Resp BP Pulse Ox 07/14/16 06:28 97.8 F 84 16 126/71 93 L 07/14/16 04:23 16 92 L 07/14/16 04:00 97.4 F L 79 17 120/66 98 07/13/16 23:57 20 93 L 07/13/16 23:30 97.4 F L 100 20 118/69 94 L 07/13/16 22:39 97.6 F 85 14 90/64 93 L 07/13/16 21:27 97.7 F 89 14 98/75 94 L 07/13/16 20:55 98.1 F 85 14 94/54 93 L 07/13/16 20:44 98.3 F 98 14 95/61 93 L 07/13/16 20:16 97.2 F L 99 20 95/73 92 L 07/13/16 20:06 99 22 99/70 92 L 07/13/16 19:56 97.7 F 101 24 90/60 92 L 07/13/16 19:46 97 24 110/80 92 L 07/13/16 19:36 100 26 113/81 94 L 07/13/16 19:26 98.2 F 113 24 119/69 93 L 07/13/16 15:16 98.2 F 87 16 100 07/13/16 15:05 89 110/64 07/13/16 11:23 98.2 F 91 16 101/59 95 07/13/16 10:21 82 112/69 07/13/16 07:52 16 95 07/13/16 06:53 98.2 F 63 16 94/60 94 L Intake and Output 07/13/16 07/13/16 07/14/16 15:59 23:59 07:59 Intake Total 0 / 0 Output Total 200 / 200 250 / 250 300 / 300 Balance -200 / -200 -250 / -250 -300 / -300 Intake: Oral 0 / 0 Output: Urine 200 / 200 300 / 300 Estimated Blood Loss 250 / 250 Other: Meal NPO Percent of Meal Consumed 0% # Voids 1 - Labs CBC & BMP: 07/13/16 19:55 07/12/16 04:21 Labs: Abnormal lab results Hgb 9.7 g/dL (11.5-15.4) L 07/13/16 19:55 Hct 31.4 % (35.3-44.9) L 07/13/16 19:55 MCV 80.7 fL (83.0-100.0) L 07/12/16 04:21 MCH 25.3 pg (28.0-33.3) L 07/12/16 04:21 MCHC 31.4 g/dL (31.6-35.5) L 07/12/16 04:21 RDW 14.8 % (11.5-14.5) H 07/12/16 04:21 PT 13.8 Seconds (9.4-12.1) H 07/12/16 04:21 Sodium 135 mEq/L (136-145) L 07/12/16 04:21 Glucose 118 mg/dL (70-99) H 07/12/16 04:21 - VTE Documentation of Mechanical Device: Venous foot pump, device Consult Discharge Plan - Plan Referrals: NO,PCP [Non-Partnered Physician] - Prescriptions: Morphine Sulfate SR (12 HR) [MS Contin] 60 mg PO Q12H #10 tablet.er Oxycodone HCl/Acetaminophen [Percocet 7.5-325 mg Tablet] 1 tab PO BID PRN #14 tablet PRN Reason: Pain
[2016-07-14] MEDS: ceFAZolin 2,000 MG in D5% in Water 100 ML IVPB SCH (08:18)
[2016-07-14] MEDS: Magnesium Oxide 400 MG TABLET PO SCH ×2 (08:25→20:40)
[2016-07-14] MEDS: Valsartan 80 MG TABLET PO SCH (08:25)
[2016-07-14] MEDS: *HR* Morphine Sulfate SR (12 HR) 60 MG TABLET.ER PO SCH ×2 (08:25→20:40)
[2016-07-14] MEDS: amLODIPine 5 MG TABLET PO SCH (08:26)
[2016-07-14] MEDS: INCRUSE ELLIPTA IH SCH (08:57)
[2016-07-14] MEDS: Budesonide/Formoterol 160/4.5 MDI IH SCH ×2 (08:58→20:38)
[2016-07-14] MEDS: *HR* OxyCODONE Immed Rel 5 MG TABLET PO PRN ×2 (11:28→16:24)
--- NOTE | 2016-07-14 15:00 | Internal Med Progress Note ---
Date of Encounter: 07/14/16 Time of Encounter: 08:45 - Assessment and plan (1) Fracture of proximal end of right humerus Current Visit: Yes Status: Acute Qualifiers: Encounter type: initial encounter Fracture type: closed Fracture morphology: other fracture Fracture alignment: displaced Qualified Code(s): S42.291A - Other displaced fracture of upper end of right humerus, initial encounter for closed fracture (2) PVC (premature ventricular contraction) Current Visit: Yes Status: Chronic Assessment and plan: Currently stable continue current medication (3) COPD (chronic obstructive pulmonary disease) Current Visit: Yes Status: Chronic Assessment and plan: Continue aerosol treatment counseling: Incentive spirometry, counseling on taking deep breaths Qualifiers: COPD type: unspecified COPD Qualified Code(s): J44.9 - Chronic obstructive pulmonary disease, unspecified (4) Hypertension Current Visit: Yes Status: Chronic Assessment and plan: Controlled continue current medication Qualifiers: Hypertension type: unspecified secondary hypertension Qualified Code(s): I15.9 - Secondary hypertension, unspecified; I15 - Secondary hypertension - Subjective Interval history: Patient complains of shortness of breath with mild exertion. Patient denies any chest pain. No bowel movement since admission. Patient denies any dysuria - Constitutional Vitals: Temp Pulse Resp BP Pulse Ox 97.8 F 89 16 128/63 93 L 07/14/16 10:12 07/14/16 10:12 07/14/16 10:12 07/14/16 10:12 07/14/16 10:12 General appearance: Present: cooperative, A&O X 3, pleasant, no acute distress, obese, answers questions appropriately - Head Head exam: Present: atraumatic, normocephalic - Neck Neck exam general surgery: Present: supple, trachea midline. Absent: lymphadenopathy - Respiratory Respiratory exam: Present: CTAB. Absent: accessory muscle use, rales, rhonchi, wheezes - Cardiovascular Cardiovascular exam: Present: RRR, +S1, +S2. Absent: diastolic murmur, gallop, rubs, systolic murmur - GI/Abdominal GI/Abdominal exam: Present: normal bowel sounds, soft, no peritoneal signs. Absent: distended, tenderness - Skin Skin exam: Present: dry, intact Internal Medicine: Result - Labs CBC & Chem 7: 07/13/16 19:55 07/12/16 04:21 Labs: Short CBC 07/13/16 Range/Units 19:55 Hgb 9.7 L (11.5-15.4) g/dL Hct 31.4 L (35.3-44.9) % - ABG Interpretation ABG results: PT/INR, D-dimer PT 13.8 Seconds (9.4-12.1) H 07/12/16 04:21 - Impressions Impressions Fluoroscopy 07/13/16 18:20 IMPRESSION: Intraprocedural fluoroscopic spot images as above. See separate procedure report for more information. D/ / Pavel Shannon MD / Pavel Shannon MD Interpreting Provider: Pavel Shannon MD Humerus X-Ray 07/13/16 19:17 IMPRESSION: Anatomic alignment right humerus after fracture repair D/ / Omid Lee MD / Omid Lee MD Interpreting Provider: Omid Lee MD - VTE Documentation of Mechanical Device: Intermittent pneumatic compression device Consult Discharge Plan - Plan Referrals: NO,PCP [Non-Partnered Physician] - Prescriptions: Morphine Sulfate SR (12 HR) [MS Contin] 60 mg PO Q12H #10 tablet.er Oxycodone HCl/Acetaminophen [Percocet 7.5-325 mg Tablet] 1 tab PO BID PRN #14 tablet PRN Reason: Pain
[2016-07-14] MEDS: Ibuprofen 600 MG TABLET PO PRN (18:56)
[2016-07-14] MEDS: Albuterol 2.5 MG/3 ML NEBULIZER IH SCH (20:33)
[2016-07-15] MEDS: Albuterol 2.5 MG/3 ML NEBULIZER IH SCH ×7 (00:42→23:22)
[2016-07-15] MEDS: *HR* OxyCODONE Immed Rel 5 MG TABLET PO PRN ×2 (00:52→16:08)
[2016-07-15] MEDS: Ibuprofen 600 MG TABLET PO PRN ×2 (04:00→12:40)
[2016-07-15] MEDS: Valsartan 80 MG TABLET PO SCH (09:24)
[2016-07-15] MEDS: amLODIPine 5 MG TABLET PO SCH (09:24)
[2016-07-15] MEDS: Magnesium Oxide 400 MG TABLET PO SCH ×2 (09:24→21:49)
[2016-07-15 09:31] LABS: Hematocrit 29.5 % (35.3-44.9); Hemoglobin 9.1 g/dL (11.5-15.4)
[2016-07-15] MEDS ORDERED: Acetaminophen IV 1,000 MG/100 ML INFUS..BTL IVPB PRN (09:32)
[2016-07-15] MEDS: INCRUSE ELLIPTA IH SCH (09:36)
[2016-07-15] MEDS: Budesonide/Formoterol 160/4.5 MDI IH SCH ×2 (09:37→19:56)
--- NOTE | 2016-07-15 09:43 | Orthopedics Progress Note ---
Date of Encounter: 07/15/16 Time of Encounter: 09:42 Subjective Interval history: Pain controlled. No new complaints. Afebrile vital signs stable. Operative extremity: Grossly flexes and extends the digits. Dressing clean dry and intact Fingers grossly sensate and well perfused. Assessment and plan: Continue with postoperative care. Waiting placement. Discharge when available. Objective Vital signs: Vital Signs Temp Pulse Resp BP Pulse Ox 07/15/16 09:25 86 94/61 07/15/16 06:49 98.1 F 64 18 104/58 94 L 07/15/16 04:23 16 95 07/15/16 03:55 97.8 F 69 16 101/56 97 07/15/16 00:39 98.2 F 82 14 117/63 94 L 07/14/16 20:42 98.5 F 92 15 117/74 98 07/14/16 20:33 16 96 07/14/16 16:55 16 87 L 07/14/16 14:26 98.1 F 93 16 126/73 91 L 07/14/16 10:12 97.8 F 89 16 128/63 93 L Intake and Output 07/14/16 07/15/16 07/15/16 23:59 07:59 15:59 Intake Total 250 / 250 300 / 300 Output Total 425 / 425 475 / 475 Balance -175 / -175 -175 / -175 Intake: Oral 250 / 250 300 / 300 Output: Urine 425 / 425 475 / 475 Other: # Voids 1 - Labs CBC & BMP: 07/15/16 09:25 07/12/16 04:21 Labs: Abnormal lab results Hgb 9.1 g/dL (11.5-15.4) L 07/15/16 09:25 Hct 29.5 % (35.3-44.9) L 07/15/16 09:25 MCV 80.7 fL (83.0-100.0) L 07/12/16 04:21 MCH 25.3 pg (28.0-33.3) L 07/12/16 04:21 MCHC 31.4 g/dL (31.6-35.5) L 07/12/16 04:21 RDW 14.8 % (11.5-14.5) H 07/12/16 04:21 PT 13.8 Seconds (9.4-12.1) H 07/12/16 04:21 Sodium 135 mEq/L (136-145) L 07/12/16 04:21 Glucose 118 mg/dL (70-99) H 07/12/16 04:21 - VTE Documentation of Mechanical Device: Intermittent pneumatic compression device Consult Discharge Plan - Plan Referrals: NO,PCP [Non-Partnered Physician] - Prescriptions: Morphine Sulfate SR (12 HR) [MS Contin] 60 mg PO Q12H #10 tablet.er Oxycodone HCl/Acetaminophen [Percocet 7.5-325 mg Tablet] 1 tab PO BID PRN #14 tablet PRN Reason: Pain
--- NOTE | 2016-07-15 15:24 | Internal Med Progress Note ---
Date of Encounter: 07/15/16 Time of Encounter: 15:25 - Assessment and plan (1) Fracture of proximal end of right humerus Current Visit: Yes Status: Acute Qualifiers: Encounter type: initial encounter Fracture type: closed Fracture morphology: other fracture Fracture alignment: displaced Qualified Code(s): S42.291A - Other displaced fracture of upper end of right humerus, initial encounter for closed fracture (2) PVC (premature ventricular contraction) Current Visit: Yes Status: Chronic Assessment and plan: Currently stable continue current medication (3) COPD (chronic obstructive pulmonary disease) Current Visit: Yes Status: Chronic Assessment and plan: Continue aerosol treatment counseling again on Incentive spirometry Qualifiers: COPD type: unspecified COPD Qualified Code(s): J44.9 - Chronic obstructive pulmonary disease, unspecified (4) Hypertension Current Visit: Yes Status: Chronic Assessment and plan: Controlled continue current medication Qualifiers: Hypertension type: unspecified secondary hypertension Qualified Code(s): I15.9 - Secondary hypertension, unspecified; I15 - Secondary hypertension (5) Constipation Current Visit: Yes Status: Acute Assessment and plan: resolved Qualifiers: Constipation type: slow transit constipation Qualified Code(s): K59.01 - Slow transit constipation - Time Spent With Patient less than 15 minutes (Hospitalist will sign off. Please call us as needed) - Subjective Interval history: Patient denies any chest pain or shortness of breath. Patient denies any dysuria. Patient stated that she had bowel movement yesterday - Constitutional Vitals: Temp Pulse Resp BP Pulse Ox 98.3 F 84 16 107/63 95 07/15/16 10:54 07/15/16 10:54 07/15/16 10:54 07/15/16 10:54 07/15/16 10:54 General appearance: Present: cooperative, A&O X 3, pleasant, no acute distress, obese, answers questions appropriately - Head Head exam: Present: atraumatic, normocephalic - Neck Neck exam general surgery: Present: supple, trachea midline. Absent: lymphadenopathy - Respiratory Respiratory exam: Present: decreased breath sounds, prolonged expiratory phase. Absent: accessory muscle use, rales, rhonchi, wheezes - GI/Abdominal GI/Abdominal exam: Present: normal bowel sounds, soft, no peritoneal signs. Absent: distended, tenderness - Skin Skin exam: Present: dry, intact Internal Medicine: Result - Labs CBC & Chem 7: 07/15/16 09:25 07/12/16 04:21 Labs: Short CBC 07/15/16 Range/Units 09:25 Hgb 9.1 L (11.5-15.4) g/dL Hct 29.5 L (35.3-44.9) % - ABG Interpretation ABG results: PT/INR, D-dimer PT 13.8 Seconds (9.4-12.1) H 07/12/16 04:21 - VTE Documentation of Mechanical Device: Intermittent pneumatic compression device Consult Discharge Plan - Plan Referrals: NO,PCP [Non-Partnered Physician] - Prescriptions: Morphine Sulfate SR (12 HR) [MS Contin] 60 mg PO Q12H #10 tablet.er Oxycodone HCl/Acetaminophen [Percocet 7.5-325 mg Tablet] 1 tab PO BID PRN #14 tablet PRN Reason: Pain
[2016-07-15] MEDS: *HR* Morphine Sulfate SR (12 HR) 60 MG TABLET.ER PO SCH ×2 (16:05→21:48)
[2016-07-16] MEDS: *HR* OxyCODONE Immed Rel 5 MG TABLET PO PRN ×4 (02:32→17:37)
[2016-07-16] MEDS: Albuterol 2.5 MG/3 ML NEBULIZER IH SCH ×4 (04:41→15:16)
--- NOTE | 2016-07-16 06:33 | Orthopedics Progress Note ---
Date of Encounter: 07/16/16 Time of Encounter: 06:33 - Assessment and Plan (1) Fracture of proximal end of right humerus Current Visit: Yes Status: Acute Qualifiers: Encounter type: initial encounter Fracture type: closed Fracture morphology: other fracture Fracture alignment: displaced Qualified Code(s): S42.291A - Other displaced fracture of upper end of right humerus, initial encounter for closed fracture (2) COPD (chronic obstructive pulmonary disease) Current Visit: Yes Status: Chronic Qualifiers: COPD type: unspecified COPD Qualified Code(s): J44.9 - Chronic obstructive pulmonary disease, unspecified (3) Hypertension Current Visit: Yes Status: Chronic Qualifiers: Hypertension type: unspecified secondary hypertension Qualified Code(s): I15.9 - Secondary hypertension, unspecified; I15 - Secondary hypertension (4) Thyroid disease Current Visit: Yes Status: Chronic (5) Obesity (BMI 35.0-39.9 without comorbidity) Current Visit: Yes Status: Acute (6) Acute blood loss anemia Current Visit: Yes Status: Acute (7) PVC (premature ventricular contraction) Current Visit: Yes Status: Chronic Subjective Interval history: Patient was seen this morning doing well without complaints. Afebrile vital signs stable. Operative extremity: Neurovascularly still under the effects of the nerve block. Dressing clean dry and intact Calves nontender Assessment and plan: Continue with postoperative care Discharge delayed secondary to placement issues Objective Vital signs: Vital Signs Temp Pulse Resp BP Pulse Ox 07/16/16 04:41 15 97 07/16/16 00:35 97.9 F 75 16 108/67 96 07/15/16 23:22 17 96 07/15/16 20:25 97.9 F 80 80 111/70 97 07/15/16 19:55 16 100 07/15/16 17:16 16 99 07/15/16 14:28 98.1 F 89 16 104/68 94 L 07/15/16 10:54 98.3 F 84 16 107/63 95 07/15/16 09:42 18 94 L 07/15/16 09:25 86 94/61 07/15/16 06:49 98.1 F 64 18 104/58 94 L Intake and Output 07/15/16 07/15/16 07/16/16 15:59 23:59 07:59 Intake Total 350 / 350 400 / 400 Output Total 450 / 450 600 / 600 Balance -100 / -100 -200 / -200 Intake: Oral 350 / 350 400 / 400 Output: Urine 450 / 450 600 / 600 Other: Meal Lunch Percent of Meal Consumed 80% # Voids 1 1 - Labs CBC & BMP: 07/15/16 09:25 07/12/16 04:21 Labs: Abnormal lab results Hgb 9.1 g/dL (11.5-15.4) L 07/15/16 09:25 Hct 29.5 % (35.3-44.9) L 07/15/16 09:25 MCV 80.7 fL (83.0-100.0) L 07/12/16 04:21 MCH 25.3 pg (28.0-33.3) L 07/12/16 04:21 MCHC 31.4 g/dL (31.6-35.5) L 07/12/16 04:21 RDW 14.8 % (11.5-14.5) H 07/12/16 04:21 PT 13.8 Seconds (9.4-12.1) H 07/12/16 04:21 Sodium 135 mEq/L (136-145) L 07/12/16 04:21 Glucose 118 mg/dL (70-99) H 07/12/16 04:21 - VTE Documentation of Mechanical Device: Intermittent pneumatic compression device Consult Discharge Plan - Plan Referrals: NO,PCP [Non-Partnered Physician] - Prescriptions: Morphine Sulfate SR (12 HR) [MS Contin] 60 mg PO Q12H #10 tablet.er Oxycodone HCl/Acetaminophen [Percocet 7.5-325 mg Tablet] 1 tab PO BID PRN #14 tablet PRN Reason: Pain
[2016-07-16] MEDS: INCRUSE ELLIPTA IH SCH (07:56)
[2016-07-16] MEDS: Budesonide/Formoterol 160/4.5 MDI IH SCH (07:57)
[2016-07-16] MEDS: Magnesium Oxide 400 MG TABLET PO SCH (08:25)
[2016-07-16] MEDS: amLODIPine 5 MG TABLET PO SCH (08:26)
[2016-07-16] MEDS: Valsartan 80 MG TABLET PO SCH (08:26)
--- NOTE | 2016-07-16 11:53 | Internal Med Progress Note ---
Date of Encounter: 07/16/16 Time of Encounter: 09:30 - Assessment and plan (1) Fracture of proximal end of right humerus Current Visit: Yes Status: Acute Assessment and plan: Continue current pain med , Post operative care Qualifiers: Encounter type: initial encounter Fracture type: closed Fracture morphology: other fracture Fracture alignment: displaced Qualified Code(s): S42.291A - Other displaced fracture of upper end of right humerus, initial encounter for closed fracture (2) PVC (premature ventricular contraction) Current Visit: Yes Status: Chronic Assessment and plan: Currently stable continue current medication (3) COPD (chronic obstructive pulmonary disease) Current Visit: Yes Status: Chronic Assessment and plan: Doing very good counseling again on Incentive spirometry Qualifiers: COPD type: unspecified COPD Qualified Code(s): J44.9 - Chronic obstructive pulmonary disease, unspecified (4) Hypertension Current Visit: Yes Status: Chronic Assessment and plan: Controlled continue current medication Qualifiers: Hypertension type: unspecified secondary hypertension Qualified Code(s): I15.9 - Secondary hypertension, unspecified; I15 - Secondary hypertension (5) Constipation Current Visit: Yes Status: Acute Assessment and plan: resolved Qualifiers: Constipation type: slow transit constipation Qualified Code(s): K59.01 - Slow transit constipation (6) Anemia Current Visit: Yes Status: Acute Assessment and plan: Iron supplement on discharge Qualifiers: Anemia type: unspecified type Qualified Code(s): D64.9 - Anemia, unspecified - Subjective Interval history: Patient denies any chest pain or shortness of breath. Patient denies any dysuria. her bowel is moving - Constitutional Vitals: Temp Pulse Resp BP Pulse Ox 98.1 F 90 18 103/65 96 07/16/16 11:20 07/16/16 11:20 07/16/16 11:20 07/16/16 11:20 07/16/16 11:20 General appearance: Present: cooperative, A&O X 3, pleasant, no acute distress, obese, answers questions appropriately - Neck Neck exam general surgery: Present: supple, trachea midline. Absent: lymphadenopathy - Respiratory Respiratory exam: Present: CTAB. Absent: accessory muscle use, rales, rhonchi, wheezes - Cardiovascular Cardiovascular exam: Present: RRR, +S1, +S2. Absent: diastolic murmur, gallop, rubs, systolic murmur - GI/Abdominal GI/Abdominal exam: Present: normal bowel sounds, soft, tenderness (Right sided chest wall tenderness), no peritoneal signs. Absent: distended - Neurological Exam Neurological exam: Present: CN II-XII intact, no focal deficits Internal Medicine: Result - Labs CBC & Chem 7: 07/15/16 09:25 07/12/16 04:21 - ABG Interpretation ABG results: PT/INR, D-dimer PT 13.8 Seconds (9.4-12.1) H 07/12/16 04:21 - VTE Documentation of Mechanical Device: Intermittent pneumatic compression device Consult Discharge Plan - Plan Additional Instructions: please include iron supplement and beta barbara on her discharge. If any question call Dr. Hernandez. Need to have follow-up with cardiology as an outpatient Referrals: NO,PCP [Non-Partnered Physician] - Prescriptions: Morphine Sulfate SR (12 HR) [MS Contin] 60 mg PO Q12H #10 tablet.er Oxycodone HCl/Acetaminophen [Percocet 7.5-325 mg Tablet] 1 tab PO BID PRN #14 tablet PRN Reason: Pain
[2016-07-16] MEDS: *HR* Morphine Sulfate SR (12 HR) 60 MG TABLET.ER PO SCH (12:18)
[2016-07-16] MEDS: Ibuprofen 600 MG TABLET PO PRN (12:22)
[2016-07-16 15:43] VITALS: BP 104/62
[2016-07-16] MEDS ORDERED: Magnesium Oxide 400 MG TABLET PO SCH (16:00)
== END 2016-07-16 18:42 | disposition home or self-care (01) | DRG 493 ==
LOC: 3NENU
PROVIDERS: ADMIT Orthopaedic Surgery; ATTEND Orthopaedic Surgery